=== PATIENT | male | born 1960 | race Caucasian/White ===

== ENCOUNTER 2018-06-05 06:14 | Day surgery (SDC) | payer OTHER ==
[2018-06-05] MEDS ORDERED: LACTATED RINGERS 1,000 ML IV ONE ×2 (07:00→07:24)
[2018-06-05] MEDS ORDERED: fentaNYL 250 MCG/5 ML VIAL IVP ONE (07:20)
[2018-06-05] MEDS ORDERED: MIDAZOLAM 2 MG/2 ML VIAL IVP ONE (07:20)
[2018-06-05 08:13] VITALS: BP 108/67
== END 2018-06-05 06:15 | disposition home or self-care (01) ==
LOC: SDS 06:14
PROVIDERS: ATTEND Surgery
PROC: 0DBP8ZZ Excision of Rectum, Via Natural or Artificial Opening Endoscopic (ICD-10-PCS; principal; 2018-06-05 07:30)
DX: Z12.11 Encounter for screening for malignant neoplasm of colon (principal); K62.1 Rectal polyp; K64.8 Other hemorrhoids
CPT/HCPCS: 45380; J3010; J7120

== ENCOUNTER 2020-05-31 09:11 | Outpatient (CLI) | payer OTHER ==
[2020-05-31 15:25] LABS: ALBUMIN 4.7 g/dL (3.2-5.5); ALBUMIN/GLOBULIN RATIO 1.8 (1.0-2.2); ALKALINE PHOSPHATASE 52 IU/L (42-121); ALT ALANINE AMINOTRANSFERASE 30 IU/L (10-60); AST ASPARTATE AMINOTRANSFERASE 26 IU/L (10-42); BILIRUBIN,TOTAL 1.2 mg/dL (0.2-1.0); BUN - BLOOD UREA NITROGEN 25 mg/dL (6-20); CALCIUM 9.1 mg/dL (8.5-10.3); CARBON DIOXIDE - CO2 25 mmol/L (21-32); CHLORIDE 102 mmol/L (101-111); CHOL/HDL RATIO 3.1 (<5.0); CHOLESTEROL 171 mg/dL; CREATININE 0.7 mg/dL (0.6-1.2); GFR - MDRD 116 (>89); GLUCOSE 120 mg/dL (70-100); HDL CHOLESTEROL 55 mg/dL; POTASSIUM 4.2 mmol/L (3.5-5.0); SODIUM 136 mmol/L (135-145); TOTAL PROTEIN 7.3 g/dL (6.7-8.2); TRIGLYCERIDES 33 mg/dL
[2020-05-31 15:31] LABS: CREATININE,URINE 133.9 mg/dL; MICROALBUMIN,URINE 0.4 mg/dL (0-300.0)
[2020-05-31 15:34] LABS: THYROID STIMULATING HORMONE 2.1 uIU/mL (0.34-5.60)
[2020-05-31 15:46] LABS: FOLATE 13.39 ng/mL (5.90 - >24.8)
[2020-05-31 21:20] LABS: ESTIMATED AVERAGE GLUCOSE 128 mg/dL (70-100); HEMOGLOBIN A1c% 6.1 % (4.27-6.07)
== END 2020-05-31 09:12 | disposition home or self-care (01) ==
LOC: LAB.S 09:11
PROVIDERS: ATTEND Registered Nurse
DX: E11.9 Type 2 diabetes mellitus without complications (principal); M79.2 Neuralgia and neuritis, unspecified
CPT/HCPCS: 36415; 80053; 80061; 81599; 82043; 82570; 82607; 82746; 83036; 83721; 84155; 84165; 84207; 84443

== ENCOUNTER 2023-09-12 12:45 | Outpatient (CLI) | payer OTHER ==
--- NOTE | 2023-09-12 16:05 | XRAY Report ---
PROCEDURE: Chest 2V INDICATIONS: OCCUPATIONAL EXPOSURE TO UNSPEC. RISK FACTOR TECHNIQUE: 2 views of the chest were acquired. COMPARISON: None. FINDINGS: Surgical changes and devices: None. Lungs and pleura: No pleural effusions or pneumothorax. Lungs are clear. Mediastinum: Mediastinal contours appear normal. Heart size is normal. Bones and chest wall: No suspicious bony lesions. Overlying soft tissues appear unremarkable. IMPRESSION: No acute cardiopulmonary process. Reviewed by: Lukasz Nieves MD on 09/12/2023 4:04 PM PDT Approved by: Lukasz Nieves MD on 09/12/2023 4:04 PM PDT Station ID: [id number]
== END 2023-09-12 12:46 | disposition home or self-care (01) ==
LOC: DI 12:45
PROVIDERS: ATTEND Registered Nurse
DX: Z57.9 Occupational exposure to unspecified risk factor (principal)